=== PATIENT | male | born 1965 | race African-American/Black ===

== ENCOUNTER 2018-03-05 11:45 | Emergency (ER) | payer MEDICARE, OTHER ==
[2018-03-05] MEDS: ONDANSETRON PF 4 MG/2 ML VIAL. IV (13:15)
[2018-03-05] MEDS: MORPHINE SULFATE 4 MG/ML DISP.SYRIN. IV (13:16)
[2018-03-05 13:25] LABS: ADD MAN DIFF? NO
[2018-03-05 13:37] LABS: ANION GAP 7 (6-14); BLOOD UREA NITROGEN 14 mg/dL (8-26); BUN/CREATININE RATIO 13 (6-20); CALCIUM 8.8 mg/dL (8.5-10.1); CARBON DIOXIDE 28 mmol/L (21-32); CHLORIDE 103 mmol/L (98-107); CREATININE 1.1 mg/dL (0.7-1.3); GFR 85.1; GLUCOSE 131 mg/dL (70-99); SODIUM 138 mmol/L (136-145)
[2018-03-05 13:39] LABS: BASO % 0 % (0-3); EOS % 1 % (0-3); HEMATOCRIT 43.4 % (39.0-53.0); HEMOGLOBIN 14.9 g/dL (13.0-17.5); LYMPH # 1.1 x10^3/uL (1.0-4.8); LYMPH % 20 % (24-48); MEAN CORPUSCULAR HEMOGLOBIN 31 pg (25-35); MEAN CORPUSCULAR HGB CONC 34 g/dL (31-37); MEAN CORPUSCULAR VOLUME 89 fL (79-100); MONO # 0.3 x10^3/uL (0.0-1.1); MONO % 6 % (0-9); NEUT # 3.8 x10^3uL (1.8-7.7); NEUT % 72 % (31-73); PLATELET COUNT 201 x10^3/uL (140-400); RED BLOOD COUNT 4.87 x10^6/uL (4.30-5.70); RED CELL DISTRIBUTION WIDTH 13.6 % (11.5-14.5); WHITE BLOOD COUNT 5.2 x10^3/uL (4.0-11.0)
[2018-03-05 13:44] LABS: ALBUMIN 3.5 g/dL (3.4-5.0); ALBUMIN/GLOBULIN RATIO 0.8 (1.0-1.7); ALK PHOS 91 U/L (46-116); ALT (SGPT) 26 U/L (16-63); AST (SGOT) 17 U/L (15-37); LIPASE 96 U/L (73-393); TOTAL BILIRUBIN 0.4 mg/dL (0.2-1.0); TOTAL PROTEIN 7.7 g/dL (6.4-8.2)
[2018-03-05 14:09] LABS: BILIRUBIN,URINE NEGATIVE (NEG); CLARITY,URINE CLEAR; COLOR,URINE YELLOW; GLUCOSE,URINE NEGATIVE (NEG); NITRITE,URINE NEGATIVE (NEG); PROTEIN,URINE 30 mg/dL (NEG-TRACE)
[2018-03-05 14:29] LABS: BACTERIA,URINE 0 /HPF (0-FEW); RBC,URINE 0 /HPF (0-2); SQUAMOUS EPITHELIAL CELL,UR OCC /LPF
== END 2018-03-05 15:20 | disposition home or self-care (01) ==
LOC: ER 15:20
DX: R10.84 Generalized abdominal pain (principal); E27.8 Other specified disorders of adrenal gland; M54.89 Other dorsalgia; R11.0 Nausea; K21.9 Gastro-esophageal reflux disease without esophagitis; I10 Essential (primary) hypertension; E11.9 Type 2 diabetes mellitus without complications
CPT/HCPCS: 36415; 74176; 80053; 81001; 83690; 85025; 96374; 96375; 99285-25; J2270; J2405

== ENCOUNTER → 2021-06-13 | Outpatient (CLI) | payer MEDICARE, MEDICAID ==
[2018-03-05 15:19] VITALS: BP 151/85
[~2021-06-13] MED LIST: ARIP5TAB13 PO; ASPI-482 PO; CLON-77 PO; FURO20TA3 PO; METF500T16 PO; OMEP40CA7 PO; ONDA4TAB10 SL; PIOG30TA41 PO; SIMV40TA18 PO; TAMS0.4C2 PO; VALS1TAB8 PO
--- NOTE | 2021-06-13 17:46 | RAD ---
XR CHEST 2V History: Reason: COUGH / Spl. Instructions: / History: Comparison: None. Findings: No consolidation or pleural effusion. Normal heart size. No pneumothorax. Impression: 1. No acute cardiopulmonary process. Electronically signed by: Nain Harden DO (06/13/2021 5:43 PM) [id number]
== END ==
LOC: RAD 11:53
PROVIDERS: ATTEND Internal Medicine
DX: R05 Cough (principal)
CPT/HCPCS: 71046